=== PATIENT | male | born 1985 | race Caucasian/White ===

== ENCOUNTER 2021-07-12 11:55 | Emergency (ER) | payer MEDICAID, SELFPAY ==
--- NOTE | ~2021-07-12 | US_ITS ---
EXAMINATION: US SCROTUM CLINICAL INFORMATION: Right testicular pain. COMPARISON: None TECHNIQUE: A sonogram of the scrotum was performed assessing pineda-scale appearance and color Doppler flow. Spectral Doppler analysis of the arterial and venous flow were performed in the testes bilaterally. FINDINGS: RIGHT: Right testicle measures 6.4 x 3.6 x 3.8 cm, volume 45.8 mL. No focal testicular parenchymal lesions are visualized. Spectral Doppler analysis of the arterial and venous flow is normal in the right testis. Right epididymal head is normal in size. No right hydrocele or varicocele is seen. Right epididymal Doppler flow is normal. LEFT: Left testicle measures 6.1 x 3.2 x 3.6 cm, volume 36.8 mL. No focal testicular parenchymal lesions are visualized. Spectral Doppler analysis of the arterial and venous flow is normal in the left testis. Left epididymal head is normal in size. No left hydrocele or varicocele is seen. Left epididymal Doppler flow is normal. US/US scrotum IMPRESSION: Bilateral slightly enlarged testicles but no focal or geographic lesion seen. There is normal vascular flow. Normal epididymis and scrotum.
--- NOTE | ~2021-07-12 | CT_ITS ---
EXAMINATION: CT ABDOMEN AND PELVIS WITHOUT CONTRAST CLINICAL INFORMATION: Right flank pain COMPARISON: None TECHNIQUE: Multidetector volumetric imaging was performed from the superior aspect of the liver through the pubic symphysis. Sagittal and coronal reformatted images were obtained on the technologist's workstation. This CT examination was performed using dose optimization techniques as appropriate, variously including the following: *Automated exposure control *Adjustment of mA and/or kV according to patient size (this includes techniques or standardized protocols for targeted exams where dose is matched to indication/reason for exam; i.e. extremities or head) *Use of iterative reconstruction technique DLP: 416 mGy-cm FINDINGS: LUNG BASES: The visualized lung bases are unremarkable. No pleural or pericardial effusion. LIVER, GALLBLADDER, AND BILIARY TREE: The liver is normal in size, shape, and attenuation. No focal hepatic lesion or biliary ductal dilatation is present. The gallbladder is unremarkable with no evidence of radiopaque gallstones, gallbladder wall thickening, or obvious pericholecystic inflammatory changes. PANCREAS: Unremarkable. SPLEEN: Unremarkable. ADRENAL GLANDS: Unremarkable. KIDNEYS AND URETERS: The kidneys are normal in size, shape, and attenuation. No hydronephrosis, hydroureter, or calculi seen. No perinephric stranding. 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 BLADDER: Unremarkable. GASTROINTESTINAL TRACT: No dilated loops of large or small bowel. No free air or free fluid. No evidence of acute diverticulitis. No pericolonic inflammatory change. The appendix appears unremarkable. ABDOMINAL WALL: No significant hernia is appreciated. LYMPH NODES: There are some prominent mesenteric lymph nodes present measuring up to 9 mm in short axis. VASCULAR: Unremarkable. PELVIC VISCERA: Unremarkable. OSSEOUS STRUCTURES: No suspicious destructive bony abnormalities identified. There is a circumscribed low density lesion with what appears be some chondroid matrix and slightly sclerotic outer margins with a benign appearance and may be postsurgical in nature.. CT/CT abdomen pelvis wo con IMPRESSION: No evidence of ileus or obstruction. No evidence of obstructive uropathy. Fleischner guidelines were followed.
--- NOTE | ~2021-07-12 | US_ITS ---
EXAMINATION: US SCROTUM CLINICAL INFORMATION: Right testicular pain. COMPARISON: None TECHNIQUE: A sonogram of the scrotum was performed assessing pineda-scale appearance and color Doppler flow. Spectral Doppler analysis of the arterial and venous flow were performed in the testes bilaterally. FINDINGS: RIGHT: Right testicle measures 6.4 x 3.6 x 3.8 cm, volume 45.8 mL. No focal testicular parenchymal lesions are visualized. Spectral Doppler analysis of the arterial and venous flow is normal in the right testis. Right epididymal head is normal in size. No right hydrocele or varicocele is seen. Right epididymal Doppler flow is normal. LEFT: Left testicle measures 6.1 x 3.2 x 3.6 cm, volume 36.8 mL. No focal testicular parenchymal lesions are visualized. Spectral Doppler analysis of the arterial and venous flow is normal in the left testis. Left epididymal head is normal in size. No left hydrocele or varicocele is seen. Left epididymal Doppler flow is normal. US/US scrotum doppler IMPRESSION: Bilateral slightly enlarged testicles but no focal or geographic lesion seen. There is normal vascular flow. Normal epididymis and scrotum.
[2021-07-12 12:13] VITALS: BP 153/95; PULSE 116; RESP 16; TEMP 37.1; BMI 22.1
[2021-07-12 12:35] LABS: Appearance Urine CLEAR; Color Urine YELLOW; Glucose Urine UA NEG (NEG); Leukocyte Esterase Urine NEG (NEG); Nitrite Urine NEG (NEG); PH 5.5 (5.0-8.0); Specific Gravity - Urine >= 1.030 (1.005-1.025); Urine Blood NEG (NEG); Urine Ketones 5 MG/DL (NEG); Urine Protein NEG (NEG-TRACE)
--- NOTE | 2021-07-12 13:14 | ED_ITS ---
HPI - General Adult General Chief complaint: Urogenital-Male Stated complaint: kidney pain Time Seen by Provider: 07/12/21 12:42 Source: patient Mode of arrival: ambulatory Limitations: no limitations History of Present Illness HPI narrative: 36-year-old male presents to ED for right testicular pain, right flank pain, urinary dribbling stream and increased urinary frequency. Patient denies any nausea, vomiting, fever, chills, penile discharge, or penile lesions. Patient states no past medical history. Patient denies any history of STDs and denies any recent unprotected sexual activity. Related Data Allergies Allergy/AdvReac Type Severity Reaction Status Date / Time Penicillins Allergy Difficulty Verified 07/12/21 12:13 Breathing Review of Systems Review of Systems: Increased urinary frequency. Right flank pain. Yes all other systems are reviewed and are negative [facility] Social History Social History Advance Directives: No Advance Directives Information Provided: No Physical Exam ED Vital Signs: Vital Signs - 24 hr 07/12/21 12:13 07/12/21 14:00 07/12/21 16:00 Temperature 98.7 F Pulse Rate 116 H 76 60 Respiratory Rate 16 16 16 Blood Pressure 153/95 H 133/83 133/81 Pulse Oximetry 96 98 BMI result Body Mass Index 22.1 Const General: cooperative, healthy appearing, comfortable, no acute distress, well developed, alert, awake and Physically active Orientation/consciousness: patient oriented x3 HENMT Head: Yes normal to inspection, Yes No palpable skull fracture present, Yes normocephalic, Yes atraumatic and No abrasion Eyes General: appearance normal, both eyes and all related structures Neck Neck: Yes normal visual inspection, Yes full ROM, Yes no lymphadenopathy, Yes no meningeal signs, Yes trachea midline, Yes supple, No anterior neck swelling and No tender Chest Chest palpation & inspection: normal inspection of the chest and normal palpati on of entire chest wall Resp Effort & Inspection: normal respiratory effort and able to speak in complete sentences Auscultation: clear to auscultation bilaterally Cardio Jugular venous distension: no JVD Heart sounds: S1 normal heart sound present and S2 normal heart sound present GI Inspection: Yes normal to inspection and No abdominal wall ecchymosis Palpation (GI): Soft to palpation, not firm, nontender and no guarding Other: Negative for any penile discharge, penile lesions, or penile swelling. Mild tenderness of right testicle but negative for any erythema. The testicle normal. Scrotum not swollen. Skin General skin exam: no rashes or lesions noted and elasticity normal Neuro General: patient oriented x3, gait normal, no meningeal signs and CN's II-XI intact bilaterally Cranial nerves: Yes CN's II-XII intact bilaterally Extrem General: Yes normal to inspection and Yes full ROM Psych Appearance: grossly normal, well kempt and not disheveled Course Course Course Narrative: Blue basic labs. We will send for scrotal ultrasound who was seen for dry CT to check for kidney stones although would negative for blood. Labs ordered Reevaluation(s) Reevaluation #1: Testicular ultrasound came back negative for torsion or epididymitis but did say testicles were little bit larger than usual. Dr. Montiel spoke with me in regards to ultrasound results of large testicles and states patient be have some lympho ma that needs to be evaluated. Patient's abdominal CT scan shows mesenteric lymphadenopathy. Prevoid bladder scan was 650 and post void bladder scan was 300. Patient refused straight cath or indwelling aguirre. Patient informed of conversation that was done with radiologist Dr. Montiel and CT scan reading lymphadenopathy was informed he should follow-up with her primary care to be evaluated for lymphoma and follow-up with Urology for difficulty urinating Time: 17:51 Medical Decision Making [facility] Narrative Medical decision making narrative: Mesenteric lymphadenopathy. Difficulty urination Lab Data Result diagrams: 07/12/21 13:30 07/12/21 13:30 Labs: Lab Results 07/12/21 07/12/21 07/12/21 Range/Units 12:26 13:30 13:30 WBC 7.8 (4.8-10.8) X10*3/uL RBC 4.95 (4.60-5.80) X10*6/uL Hgb 15.4 (14.0-18.0) g/dl Hct 43.4 (42.0-52.0) % MCV 87.7 (80.0-98.0) fL MCH 31.1 (27.0-33.0) pg MCHC 35.5 (31.0-36.0) g/dl RDW 11.8 (11.0-16.0) % Plt Count 211 (160-400) X10*3/uL MPV 9.5 (9.4-12.4) fL Immature Gran % (Auto) 0.3 (0.0-0.4) % Neut % (Auto) 70.5 (45-73) % Lymph % (Auto) 21.0 (20-40) % [place] % (Auto) 6.8 (2-11) % Eos % (Auto) 1.0 (0-4) % Baso % (Auto) 0.4 (0-2) % Lymph # (Auto) 1.6 (1.2-4.9) X10*3/uL [place] # (Auto) 0.5 (0.1-1.2) X10*3/uL Eos # (Auto) 0.1 (0.0-0.4) X10*3/uL Baso # (Auto) 0.0 (0.0-0.2) X10*3/uL Abs Immat Gran (auto) 0.02 (0.00-0.03) X10*3/uL Absolute Neuts (auto) 5.5 (2.0-8.3) x10*3/uL Absolute Nucleated RBC 0.000 (0.0-0.012) X10*3/uL Nucleated RBC % (auto) 0.0 (0.0-0.2) /100WBC Sodium 140 (135-145) mmol/L Potassium 4.4 (3.3-5.1) mmol/L Chloride 106 (96-108) mmol/L Carbon Dioxide 25 (22-29) mmol/L Anion Gap 13 (12-20) BUN 11 (9-16) mg/dL Creatinine 0.93 (0.5-1.4) mg/dL Estim Creat Clear Calc 107.7 Estimated GFR > 60 Random Glucose 105 (60-115) mg/dL Calcium 10.2 (8.4-10.2) mg/dL Total Bilirubin 1.4 H (0.0-1.0) mg/dL AST 19 (5-37) U/L ALT 35 (0-40) U/L Alkaline Phosphatase 48 (39-117) U/L Total Protein 7.4 (6.5-8.0) g/dL Albumin 4.7 (3.5-5.0) g/dL Urine Color YELLOW Urine Appearance CLEAR Urine pH 5.5 (5.0-8.0) Ur Specific [place] >= 1.030 H (1.005-1.025) Urine Protein NEG (NEG-TRACE) MG/DL Urine Glucose (UA) NEG (NEG) MG/DL Urine Ketones 5 (NEG) MG/DL Urine Blood NEG (NEG) Urine Nitrite NEG (NEG) Ur Leukocyte Esterase NEG (NEG) Chlam trachomat DNA PCR (Not Detect.) N.gonorrhoeae DNA (PCR) (Not Detect.) 07/12/21 Range/Units 13:31 WBC (4.8-10.8) X10*3/uL RBC (4.60-5.80) X10*6/uL Hgb (14.0-18.0) g/dl Hct (42.0-52.0) % MCV (80.0-98.0) fL MCH (27.0-33.0) pg MCHC (31.0-36.0) g/dl RDW (11.0-16.0) % Plt Count (160-400) X10*3/uL MPV (9.4-12.4) fL Immature Gran % (Auto) (0.0-0.4) % Neut % (Auto) (45-73) % Lymph % (Auto) (20-40) % [place] % (Auto) (2-11) % Eos % (Auto) (0-4) % Baso % (Auto) (0-2) % Lymph # (Auto) (1.2-4.9) X10*3/uL [place] # (Auto) (0.1-1.2) X10*3/uL Eos # (Auto) (0.0-0.4) X10*3/uL Baso # (Auto) (0.0-0.2) X10*3/uL Abs Immat Gran (auto) (0.00-0.03) X10*3/uL Absolute Neuts (auto) (2.0-8.3) x10*3/uL Absolute Nucleated RBC (0.0-0.012) X10*3/uL Nucleated RBC % (auto) (0.0-0.2) /100WBC Sodium (135-145) mmol/L Potassium (3.3-5.1) mmol/L Chloride (96-108) mmol/L Carbon Dioxide (22-29) mmol/L Anion Gap (12-20) BUN (9-16) mg/dL Creatinine (0.5-1.4) mg/dL Estim Creat Clear Calc Estimated GFR Random Glucose (60-115) mg/dL Calcium (8.4-10.2) mg/dL Total Bilirubin (0.0-1.0) mg/dL AST (5-37) U/L ALT (0-40) U/L Alkaline Phosphatase (39-117) U/L Total Protein (6.5-8.0) g/dL Albumin (3.5-5.0) g/dL Urine Color Urine Appearance Urine pH (5.0-8.0) Ur Specific [place] (1.005-1.025) Urine Protein (NEG-TRACE) MG/DL Urine Glucose (UA) (NEG) MG/DL Urine Ketones (NEG) MG/DL Urine Blood (NEG) Urine Nitrite (NEG) Ur Leukocyte Esterase (NEG) Chlam trachomat DNA PCR NOT DETECTED (Not Detect.) N.gonorrhoeae DNA (PCR) NOT DETECTED (Not Detect.) Discharge Plan Discharge Clinical Impression: Difficulty in urination, Lymphadenopathy, mesenteric Patient Disposition: Home, Self-Care Instructions: Lymphadenopathy (ED), Urinary Urgency and Frequency (DC) Additional Instructions: You were given copy of your images and labs. Please follow-up with urologist for increased urinary frequency with dribbling stream. You will also need to follow up primary care provider for workup of possible lymphoma. Return to the ED for inability to urinate, severe testicular pain, abdominal pain, nausea, vomiting, fever, chills, flank pain, or any other concerning symptoms. Referrals: Bennie Camilo MD [Physician] - 2 days (Increased urinary urgency and frequency with dribbling stream. ) Print Language: Sami
[2021-07-12 13:41] LABS: MANUAL DIFF FLAG NO
[2021-07-12 13:42] LABS: Basophils Percent Auto 0.4 % (0-2); Eosinophils Absolute Auto 0.1 X10*3/uL (0.0-0.4); Hematocrit 43.4 % (42.0-52.0); Hemoglobin 15.4 g/dl (14.0-18.0); Imm Gran Abs Auto 0.02 X10*3/uL (0.00-0.03); Imm Gran Pct Auto 0.3 % (0.0-0.4); Lymphocytes Absolute Auto 1.6 X10*3/uL (1.2-4.9); Mean Corpuscular HGB Conc 35.5 g/dl (31.0-36.0); Mean Corpuscular Hemoglobin 31.1 pg (27.0-33.0); Mean Corpuscular Volume 87.7 fL (80.0-98.0); Mean Platelet Volume 9.5 fL (9.4-12.4); Monocytes Absolute Auto 0.5 X10*3/uL (0.1-1.2); Monocytes Percent Auto 6.8 % (2-11); Neutrophils Absolute Auto 5.5 x10*3/uL (2.0-8.3); Neutrophils Percent Auto 70.5 % (45-73); Platelet Count 211 X10*3/uL (160-400); Red Blood Count 4.95 X10*6/uL (4.60-5.80); Red Cell Distribution Width 11.8 % (11.0-16.0); White Blood Count 7.8 X10*3/uL (4.8-10.8)
[2021-07-12 13:58] LABS: Alanine Aminotransferase 35 U/L (0-40); Albumin Level 4.7 g/dL (3.5-5.0); Alkaline Phosphatase 48 U/L (39-117); Anion Gap 13 (12-20); Aspartate Amino Transferase 19 U/L (5-37); Bilirubin Total 1.4 mg/dL (0.0-1.0); Blood Urea Nitrogen 11 mg/dL (9-16); Calcium 10.2 mg/dL (8.4-10.2); Carbon Dioxide 25 mmol/L (22-29); Chloride 106 mmol/L (96-108); Creatinine Clr Calc Pharmacy 107.7; Estimated Glomerular Filt Rate > 60; Glucose Random 105 mg/dL (60-115); Potassium 4.4 mmol/L (3.3-5.1); Sodium 140 mmol/L (135-145); Total Protein 7.4 g/dL (6.5-8.0)
[2021-07-12 14:00] VITALS: BP 133/83; PULSE 76; RESP 16; O2SAT 96
[2021-07-12 16:00] VITALS: BP 133/81; PULSE 60; RESP 16; O2SAT 98
[2021-07-12 16:37] LABS: CT PCR NOT DETECTED (Not Detect.); NG PCR NOT DETECTED (Not Detect.)
== END 2021-07-12 18:20 | disposition home or self-care (01) ==
PROVIDERS: Physician Assistant; Emergency Provider Emergency Medicine
DX: R33.9 Retention of urine, unspecified (principal); R59.1 Generalized enlarged lymph nodes; R35.0 Frequency of micturition; N23 Unspecified renal colic; Z79.899 Other long term (current) drug therapy
CPT/HCPCS: 36415; 51798; 74176; 76870; 80053; 81003; 85025; 87491; 87591; 93975; 96374; 99284

== ENCOUNTER 2021-08-11 09:54 | Emergency (ER) | payer MEDICAID, SELFPAY ==
--- NOTE | ~2021-08-11 | CT_ITS ---
EXAMINATION: CT HEAD WITHOUT CONTRAST CLINICAL INFORMATION: Headache. Facial numbness. COMPARISON: None available. TECHNIQUE: Contiguous axial imaging was performed from the skull base to vertex without intravenous administration of contrast. This CT examination was performed using dose optimization techniques as appropriate, variously including the following: *Automated exposure control. *Adjustment of mA and/or kV according to patient size (this includes techniques or standardized protocols for targeted exams where dose is matched to indication/reason for exam; i.e. extremities or head). *Use of iterative reconstruction technique. DLP: 646 mGy-cm FINDINGS: There is no evidence of acute intracranial hemorrhage or edematous territorial infarction. There is no abnormal attenuation within the brain parenchyma. Miller-white matter differentiation is preserved. The ventricles are normal in size and configuration. No evidence for obstructive hydrocephalus. No abnormal mass effect or midline shift. No extra-axial fluid collections. No acute soft tissue or osseous abnormalities. Mild mucosal thickening of the paranasal sinuses. Most notably, there is moderate mucosal thickening of the left frontal sinus. Small left-sided mastoid effusion. Otherwise, the remaining mastoid air cells and middle ear cavities are clear. CT/CT head/brain wo con IMPRESSION: 1. No evidence of acute intracranial hemorrhage or edematous territorial infarction. 2. Sinonasal mucosal disease most notably affecting the left frontal sinus.
--- NOTE | ~2021-08-11 | XR_ITS ---
EXAMINATION: XR CHEST CLINICAL INFORMATION: Chest pain COMPARISON: None TECHNIQUE: 2 views of the chest were obtained. FINDINGS: There is no evidence of acute parenchymal disease, pneumothorax, or pleural effusion. Heart normal size. No evidence of pulmonary edema. Bony structures appear unremarkable. Overlying the lower right hemithorax there is an approximately 8 mm density which may represent nipple shadow or vessel en face. Repeat PA view with nipple markers in place would be of help in further evaluation. XR/XR chest 2V IMPRESSION: No acute disease. 8 mm density overlying the right hemithorax as described.
[2021-08-11 10:08] VITALS: BP 139/84; PULSE 82; RESP 16; TEMP 36.6; O2SAT 98; BMI 23.6
[2021-08-11 11:16] LABS: MANUAL DIFF FLAG NO
[2021-08-11 11:26] LABS: Basophils Percent Auto 0.4 % (0-2); Eosinophils Absolute Auto 0.2 X10*3/uL (0.0-0.4); Eosinophils Percent Auto 2.8 % (0-4); Hematocrit 42.6 % (42.0-52.0); Hemoglobin 15.4 g/dl (14.0-18.0); Imm Gran Abs Auto 0.03 X10*3/uL (0.00-0.03); Imm Gran Pct Auto 0.4 % (0.0-0.4); Lymphocytes Absolute Auto 2.1 X10*3/uL (1.2-4.9); Lymphocytes Percent Auto 26.1 % (20-40); Mean Corpuscular HGB Conc 36.2 g/dl (31.0-36.0); Mean Corpuscular Hemoglobin 31.6 pg (27.0-33.0); Mean Corpuscular Volume 87.3 fL (80.0-98.0); Mean Platelet Volume 9.7 fL (9.4-12.4); Monocytes Absolute Auto 0.6 X10*3/uL (0.1-1.2); Monocytes Percent Auto 7.2 % (2-11); Neutrophils Percent Auto 63.1 % (45-73); Platelet Count 222 X10*3/uL (160-400); Red Blood Count 4.88 X10*6/uL (4.60-5.80); Red Cell Distribution Width 11.7 % (11.0-16.0); White Blood Count 7.9 X10*3/uL (4.8-10.8)
[2021-08-11 11:31] LABS: Anion Gap 12 (12-20); Blood Urea Nitrogen 12 mg/dL (9-16); Calcium 9.5 mg/dL (8.4-10.2); Carbon Dioxide 23 mmol/L (22-29); Chloride 107 mmol/L (96-108); Creatinine Clr Calc Pharmacy 122.4; Estimated Glomerular Filt Rate > 60; Glucose Random 94 mg/dL (60-115); Potassium 3.9 mmol/L (3.3-5.1); Sodium 138 mmol/L (135-145)
--- NOTE | 2021-08-11 12:05 | ECG_ITS ---
Test Reason : general medical Blood Pressure : / mmHG Vent. Rate : 056 BPM Atrial Rate : 056 BPM P-R Int : 150 ms QRS Dur : 096 ms QT Int : 414 ms P-R-T Axes : 011 052 019 degrees QTc Int : 399 ms Sinus bradycardia with sinus arrhythmia ST elevation, consider early repolarization Borderline ECG No previous ECGs available Referred By: Tracy Jones Electronically Signed By:Eduar High
--- NOTE | 2021-08-11 12:07 | ED.GENADULT ---
HPI - General Adult General Chief complaint: General Medical Stated complaint: headache Time Seen by Provider: 08/11/21 10:44 Source: patient Mode of arrival: ambulatory Limitations: no limitations History of Present Illness HPI narrative: 36-year-old male healthy here with multiple complaints. Patient reports of right-sided headache constant for the last 3 weeks this is associated with photophobia. No phonophobia or nausea vomiting or dizziness. Patient tells me 4 days ago the headache became more severe and he had some periodically tingling of the right side of the face. The headache has improved in severity and the tingling is now described as a burning sensation on the right side of the face. This is not triggered by eating, drinking, touch. There is no reports of paresthesias of the extremity or weakness of the extremity or speech changes or dizziness. Patient also complaining of right-sided chest wall pain for the last few weeks. seen at his primary care for this and had some labs which she tell me which were normal. Told his pain was nerve pain d/t area of self injury in the past. no associated cough, fever, shortness of breath, abdominal pain or vomiting. Related Data Allergies Allergy/AdvReac Type Severity Reaction Status Date / Time Penicillins Allergy Difficulty Verified 07/12/21 12:13 Breathing Review of Systems Review of Systems: Yes all other systems are reviewed and are negative Constitutional: Constitutional: Reports no additional constitutional complaints, Denies body ache(s), Denies chills, Denies fever(s), Reports headache(s) and Denies weakness Eyes: Eyes: Reports no additional eye complaints and Denies change in vision ENT: Reports system reviewed and no additional complaints, except as documented, Denies dizziness, Reports headache(s), Denies nasal congestion, Denies nasal discharge and Denies neck pain Cardiovascular: Cardiovascular: Reports no additional cardiovascular complaints, Reports chest pain, Denies leg edema and Denies dyspnea Respiratory: Respiratory: Reports no additional respiratory complaints, Denies cough and Denies dyspnea Gastrointestinal: Gastrointestinal: Reports no additional gastrointestinal complaints, Denies abdominal pain, Denies diarrhea, Denies nausea and Denies vomiting Genitourinary: Genitourinary: Denies urinary incontinence Musculoskeletal: Musculoskeletal: Reports no additional musculoskeletal complaints, Denies back pain, Denies arthralgias, Denies joint swelling, Denies neck pain, Reports numbness and Reports tingling Integumentary/Breasts: Skin/Breast: Reports system reviewed and no additional complaints, except as docu and Denies rash Neurologic: Reports system reviewed and no additional complaints, except as documented, Denies dizziness, Reports headache(s), Reports numbness, Reports tingling and Denies weakness PMFSH Past Medical History Attestation statement: The following information was validated with the patient. Source: old records reviewed and nursing notes reviewed Medical History No known health problems Social History Social History Advance Directives: Yes Advance Directives Information Provided: Yes Advance Directives on File: No Physical Exam ED Vital Signs: Vital Signs - 24 hr 08/11/21 10:08 Temperature 98 F Pulse Rate 82 Respiratory Rate 16 Blood Pressure 139/84 Pulse Oximetry 98 BMI result Body Mass Index 23.6 Const General: cooperative, healthy appearing, comfortable and no acute distress Orientation/consciousness: patient oriented x3 Limitations: no limitations HENMT Head: Yes normal to inspection, No scalp tenderness and No Temporal artery tenderness present Ears: hearing grossly normal bilaterally and TM's normal bilaterally General nose exam: Normal external nose present Face and sinus: Yes normal facial exam Mouth: Normal oral and palatal mucosa present Throat: Yes posterior oropharynx normal, Yes tonsils normal and Yes uvula midline Eyes General: appearance normal, both eyes and all related structures Visual Mercedes: normal visual mercedes by confrontation Alignment and Position: alignment normal Pupils: Equal, round and reactive pupils present EOM: EOMs intact bilaterally Neck Neck: Yes normal visual inspection, Yes full ROM, Yes no lymphadenopathy and Yes no meningeal signs Chest Other: Unable to reproduce any tenderness Chest palpation & inspection: normal inspection of the chest Chest/axillae images: 1. multiple area of scarring Resp Effort & Inspection: normal respiratory effort Auscultation: clear to auscultation bilaterally Cardio Rate: regular rate Rhythm: regular rhythm Peripheral pulses: Peripheral pulses 2+ throughout GI Inspection: Yes normal to inspection Palpation (GI): Soft to palpation and nontender General: Yes no CVA tenderness Back/Spine/Pelvis Back: no CVA tenderness Thoracic/Lumbar Spine: thoracic and lumbar spine normal to inspection Skin General skin exam: no rashes or lesions noted Neuro General: patient oriented x3, moves all extremities and no meningeal signs Cranial nerves: Yes CN's II-XII intact bilaterally, Yes Equal, round and reactive pupils present, Yes Bilaterally intact EOM present, Yes Nystagmus not present, Yes Normal facial strength present and Yes Midline tongue present Cognition (Neuro): normal cognition Gait exam (Neuro): Normal gait present Motor exam (neuro): 5/5 motor strength present throughout Sensory Exam: Normal double simultaneous stimulation for sensation Coordination: [id number] test normal, [id number] test normal and tandem gait normal Extrem General: Yes normal to inspection, Yes no pedal edema and Yes no calf tenderness NIH Stroke Scale Internal: Initial- Upon Arrival Level of Consciousness: Alert Level of Consciousness Questions: Answers both questions correctly Level of Consciousness Commands: Performs both tasks correctly Best Gaze: Normal Visual: No visual loss Facial Palsy: Normal Motor Arm (Right): No drift Motor Arm (Left): No drift Motor Leg (Right): No drift Motor Leg (Left): No drift Limb Ataxia: Absent Sensory: Normal Best Language: No aphasia Dysarthia: Normal Extinction and Inattention: No abnormality Score: 0 Course Course Course Narrative: 36-year-old male here with multiple complaints. Patient reports headache for the last few weeks with some sensation changes over the right side of face for the last 4 days. NIH score 0. Normal neuro exam. No obvious and of temporal artery tenderness or trigeminal neuralgia pain. ?migraine. due to persistence in pain and length of symptoms will check CT head to rule out any space-occupying lesion. will give normal saline bolus, IV Toradol, Benadryl and Reglan. also complaining of some right-sided chest wall pain for the last few weeks. Unable to elicit any pain on exam. Will check chest x-ray, EKG, lab Reevaluation(s) Reevaluation #1: Labs are unremarkable. Chest x-ray, EKG showed no acute finding. CT head is unremarkable. the patient reports his symptoms of headache or improving but continue. I did offer additional medications but the patient declined this. Therefore we discussed increasing fluids at home, supportive care measures and follow up .with his primary care. reviewed worrisome signs and symptoms of when to return to the emergency department. Comfortable discharge home. Time: 14:30 Medical Decision Making MDM Narrative Medical decision making narrative: Less likely ACS with negative troponin, normal EKG and symptoms greater for several weeks perc score 0. Less likely PE less likely CVA with no focal neurological deficits and a negative head CT was symptoms greater than several weeks Medical Records Medical records reviewed: Yes I reviewed the patient's medical records. Lab Data Lab results reviewed: Yes I reviewed the patient's lab results. Result diagrams: 08/11/21 11:04 08/11/21 10:47 Labs: Lab Results 08/11/21 08/11/21 08/11/21 Range/Units 10:47 11:04 11:04 WBC 7.9 (4.8-10.8) X10*3/uL RBC 4.88 (4.60-5.80) X10*6/uL Hgb 15.4 (14.0-18.0) g/dl Hct 42.6 (42.0-52.0) % MCV 87.3 (80.0-98.0) fL MCH 31.6 (27.0-33.0) pg MCHC 36.2 H (31.0-36.0) g/dl RDW 11.7 (11.0-16.0) % Plt Count 222 (160-400) X10*3/uL MPV 9.7 (9.4-12.4) fL Immature Gran % (Auto) 0.4 (0.0-0.4) % Neut % (Auto) 63.1 (45-73) % Lymph % (Auto) 26.1 (20-40) % [place] % (Auto) 7.2 (2-11) % Eos % (Auto) 2.8 (0-4) % Baso % (Auto) 0.4 (0-2) % Lymph # (Auto) 2.1 (1.2-4.9) X10*3/uL [place] # (Auto) 0.6 (0.1-1.2) X10*3/uL Eos # (Auto) 0.2 (0.0-0.4) X10*3/uL Baso # (Auto) 0.0 (0.0-0.2) X10*3/uL Abs Immat Gran (auto) 0.03 (0.00-0.03) X10*3/uL Absolute Neuts (auto) 5.0 (2.0-8.3) x10*3/uL Absolute Nucleated RBC 0.000 (0.0-0.012) X10*3/uL Nucleated RBC % (auto) 0.0 (0.0-0.2) /100WBC Sodium 138 (135-145) mmol/L Potassium 3.9 (3.3-5.1) mmol/L Chloride 107 (96-108) mmol/L Carbon Dioxide 23 (22-29) mmol/L Anion Gap 12 (12-20) BUN 12 (9-16) mg/dL Creatinine 0.85 (0.5-1.4) mg/dL Estim Creat Clear Calc 122.4 Estimated GFR > 60 Random Glucose 94 (60-115) mg/dL Calcium 9.5 D (8.4-10.2) mg/dL Magnesium 2.0 (1.6-2.6) mg/dL Total Bilirubin 1.3 H (0.0-1.0) mg/dL Direct Bilirubin 0.4 (0.0-0.5) mg/dL AST 23 (5-37) U/L ALT 36 (0-40) U/L Alkaline Phosphatase 59 D (39-117) U/L Total Creatine Kinase 123 (38-174) U/L Troponin I High Sens 5.1 (<3.5-35.0) ng/L Total Protein 7.1 (6.5-8.0) g/dL Albumin 4.6 (3.5-5.0) g/dL Imaging Data CT scan - head: Attestation: I personally reviewed and interpreted this imaging study as follows: Radiologist's impression: [place] [id number] CT Scan Report Signed Patient: Trae Shaver MR#: [id number] : 1985 Acct:[id number] Age/Sex: 36 / M ADM Date: 08/11/21 Loc: HO.ED Attending Dr: Ordering Physician: Jocelyn Cedeno DO Date of Service: 08/11/21 Procedure(s): CT head/brain wo con Accession Number(s): [id number] cc: Jocelyn Cedeno DO~ EXAMINATION: CT HEAD WITHOUT CONTRAST CLINICAL INFORMATION: Headache. Facial numbness.? COMPARISON: None available. TECHNIQUE: Contiguous axial imaging was performed from the skull base to vertex without intravenous administration of contrast. This CT examination was performed using dose optimization techniques as appropriate, variously including the following: *Automated exposure control. *Adjustment of mA and/or kV according to patient size (this includes techniques or standardized protocols for targeted exams where dose is matched to indication/reason for exam; i.e. extremities or head). *Use of iterative reconstruction technique. DLP: 646 mGy-cm FINDINGS: There is no evidence of acute intracranial hemorrhage or edematous territorial infarction. There is no abnormal attenuation within the brain parenchyma. Miller-white matter differentiation is preserved. The ventricles are normal in size and configuration. No evidence for obstructive hydrocephalus. No abnormal mass effect or midline shift. No extra-axial fluid collections. No acute soft tissue or osseous abnormalities. Mild mucosal thickening of the paranasal sinuses. Most notably, there is moderate mucosal thickening of the left frontal sinus. Small left-sided mastoid effusion. Otherwise, the remaining mastoid air cells and middle ear cavities are clear. ? CT/CT head/brain wo con IMPRESSION: 1. No evidence of acute intracranial hemorrhage or edematous territorial infarction. 2. Sinonasal mucosal disease most notably affecting the left frontal sinu Chest x-ray: Attestation: I personally reviewed and interpreted this imaging study as follows: Radiologist's impression: [address] [address] XRay Report Signed Patient: Trae Shaver MR#: [id number] : 1985 Acct:[id number] Age/Sex: 36 / M ADM Date: 08/11/21 Loc: HO.ED Attending Dr: Ordering Physician: Tracy Jones NP Date of Service: 08/11/21 Procedure(s): XR chest 2V Accession Number(s): [id number] cc: Tracy Jones NP~ EXAMINATION: XR CHEST CLINICAL INFORMATION: Chest pain COMPARISON: None TECHNIQUE: 2 views of the chest were obtained. FINDINGS: There is no evidence of acute parenchymal disease, pneumothorax, or pleural effusion. Heart normal size. No evidence of pulmonary edema. Bony structures appear unremarkable. Overlying the lower right hemithorax there is an approximately 8 mm density which may represent nipple shadow or vessel en face. Repeat PA view with nipple markers in place would be of help in further evaluation. XR/XR chest 2V IMPRESSION: No acute disease. ? 8 mm density overlying the right hemithorax as described. ECG Data Attestation: I personally reviewed and interpreted this ECG as follows: Interpretation: Sb with rate 56, early repolarization on EKG, normal pr, normal qrs Discharge Plan Discharge Clinical Impression: Migraine, Chest wall pain Patient Disposition: Home, Self-Care Additional Instructions: your lab work, EKG, chest x-ray and CT scan looked normal we did do Lyme testing and these results take several days. We will call you if they are positive you were offered additional oral medications will your her in the emergency department you declined this. Please follow-up with your primary care doctor. Referrals: Physician,Jose Manuel J [Primary Care Provider] -
[2021-08-11] MEDS: diphenhydrAMINE HCL 50 MG/ML VIAL 25 MG IVPUSH (12:27)
[2021-08-11] MEDS: Metoclopramide HCl 10 MG/2 ML VIAL IVPUSH (12:27)
[2021-08-11] MEDS: 0.9 % Sodium Chloride 1,000 ML 999 ML IV (12:27)
[2021-08-11] MEDS: Ketorolac Tromethamine 30 MG/ML VIAL IVPUSH (12:28)
[2021-08-11 12:38] LABS: Alanine Aminotransferase 36 U/L (0-40); Albumin Level 4.6 g/dL (3.5-5.0); Alkaline Phosphatase 59 U/L (39-117); Aspartate Amino Transferase 23 U/L (5-37); Bilirubin Direct 0.4 mg/dL (0.0-0.5); Bilirubin Total 1.3 mg/dL (0.0-1.0); Total Protein 7.1 g/dL (6.5-8.0)
[2021-08-11 12:49] LABS: Troponin-I High Sensitivity 5.1 ng/L (<3.5-35.0)
[2021-08-11 14:48] VITALS: BP 134/71; PULSE 76; RESP 18; O2SAT 97
--- NOTE | 2021-08-11 14:51 | PC.NURSE ---
states pain still present in r side of head, 09/05, nad, skin wpd, all labs and results reviewed, will f/u w pcp
[2021-08-14 20:36] LABS: Lyme Abs Screen <0.90 index
== END 2021-08-11 14:51 | disposition home or self-care (01) ==
PROVIDERS: Nurse Practitioner Family; Emergency Provider Emergency Medicine
DX: R51.9 Headache, unspecified (principal); R07.89 Other chest pain; Z79.899 Other long term (current) drug therapy
CPT/HCPCS: 36415; 70450; 71046; 80048; 80076; 82550; 83735; 84484; 85025; 86617; 86618; 93005; 96361; 96374; 96375; 99284; J1200; J1885; J2765

== ENCOUNTER → 2021-09-15 08:40 | Outpatient (BNVA) | payer MEDICAID, SELFPAY | PROVIDERS: Visit Provider Urology | DX: N41.9 Inflammatory disease of prostate, unspecified (principal) | CPT/HCPCS: 51798; 99202 ==

== ENCOUNTER → 2021-10-20 10:54 | Outpatient (BNVA) | payer MEDICAID, SELFPAY | PROVIDERS: PCP Internal Medicine; Visit Provider Urology | DX: N41.9 Inflammatory disease of prostate, unspecified (principal); N45.1 Epididymitis; N39.0 Urinary tract infection, site not specified | CPT/HCPCS: 99212 ==

== ENCOUNTER 2023-02-01 11:18 | Outpatient (AMB) | payer OTHER, SELFPAY ==
--- NOTE | 2023-02-01 11:22 | MHC.OFFVIS ---
Intake Intake Visit Reasons: 1Y Follow Up(Prostatitis) Intake Note: Patient is Present for Follow Up Prostatitis Urology Medication: Tamsulosin Antibiotic Allergies:Penicillins Blood Thinners: None Pharmacy: [facility] Allergies Penicillins Allergy (Verified 02/01/23 11:22) Difficulty Breathing HPI HPI Comments History of Present Illness Details Trae is a pleasant male. He is a patient of . He is seen for the following urologic conditions - prostatitis Symptoms tolerable Did well with pelvic floor physical therapy Is continuing to do exercises Thinks he can manage on his own Prostatitis Started May 2021 Pain towards distal head of penis Had trial of combination therapy with Levaquin and 20% improvement 11/17 Microgen negative [facility] Medical History No known health problems Review of Systems Const Denies chills and Denies fever(s) Card Reports no additional complaints and Denies syncope Resp Denies cough GI Denies abdominal pain and Denies heartburn Reports as per HPI and Denies change in libido Neuro Denies syncope Psych Denies change in libido Endo Denies change in libido Physical Exam Const General: cooperative, healthy appearing, comfortable and no acute distress Orientation/consciousness: patient oriented x3 HEENT Face and sinus: Yes normal facial exam Mouth: moist mucous membranes Neck Neck: Yes normal visual inspection, Yes full ROM and Yes trachea midline Chest Chest palpation & inspection: normal inspection of the chest Resp Effort & Inspection: normal respiratory effort, able to speak in complete sentences and no respiratory distress GI Inspection: Yes normal to inspection Back/Spine/Pelvis Cervical Spine: normal cervical lordosis Thoracic/Lumbar Spine: thoracic and lumbar spine normal to inspection Skin General skin exam: no rashes or lesions noted Neuro General: patient oriented x3, gait normal, tone normal and moves all extremities Extrem General: Yes normal to inspection and Yes capillary refill normal Assessment & Plan Assessment & Plan (1) Pelvic floor tension: Code(s): M62.89 - Other specified disorders of muscle (2) Prostatitis: Comment: PRN followup Code(s): N41.9 - Inflammatory disease of prostate, unspecified Qualifiers: Prostatitis type: chronic Qualified Code(s): N41.1 - Chronic prostatitis Plan: Imaging studies, laboratory and physical exam results were discussed and reviewed in detail. No major barriers to patient understanding were identified. An opportunity to ask questions regarding the treatment plan was provided. All questions were answered. The patient expressed understanding and agreement with the above treatment plan. The patient is aware they should contact our office by phone for worsening of their current condition or the appearance of new urologic symptoms. Compliance is encouraged with any medications and followup testing that is ordered. It is a privilege to participate in the urologic care of your patient. If you have any questions or concerns regarding treatment for the above conditions, or other urologic issues, please do not hesitate to contact me. The office telephone contact is [phone]. This note is constructed using voice recognition software. While every effort has been made to ensure accuracy drafting instructor errors may have been included. Yours sincerely, Dr Bennie Camilo MD, [facility] - Urology Providers of Expert, Compassionate Care for the Genitourinary System Coding Level of Care Code Est Pt Level 4 (95227) Diagnoses Pelvic floor tension M62.89 Chronic prostatitis N41.1 Prostatitis type: chronic
== END 2023-02-01 11:48 | disposition home or self-care (01) ==
PROVIDERS: PCP Internal Medicine; Visit Provider Urology
DX: M62.89 Other specified disorders of muscle (principal); N41.1 Chronic prostatitis
CPT/HCPCS: 99213

== ENCOUNTER → 2023-02-01 11:18 | Outpatient (BNVA) | payer OTHER, SELFPAY | PROVIDERS: Visit Provider Urology | DX: N41.1 Chronic prostatitis (principal); M62.89 Other specified disorders of muscle | CPT/HCPCS: 99212 ==

== ENCOUNTER 2023-10-17 09:04 | Outpatient (AMB) | payer OTHER, SELFPAY ==
--- NOTE | 2023-10-17 09:13 | MHC.OFFVIS ---
Intake Visit Reasons: prostatitis follow up Intake Note: Patient is Present for Follow Up Prostatitis Urology Medication: Patient is not taking any medications that was last prescribed Antibiotic Allergies:Penicillins Blood Thinners: None Allergies Penicillins Allergy (Verified 10/17/23 09:13) Difficulty Breathing HPI Comments Details: Trae is a pleasant male. He is a patient of . 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 Has had some relapse of symptoms Secondary to overall stress Recommended headache in my pelvis book with Tarah Angel for pelvic floor administered massage Valium to use a suppository provided Prostatitis Started May 2021 Pain towards distal head of penis Had trial of combination therapy with Levaquin and 20% improvement 11/17 Microgen negative [facility] Medical History No known health problems Review of Systems Const Denies chills and Denies fever(s) Card Reports no additional complaints and Denies syncope Resp Denies cough GI Denies abdominal pain and Denies heartburn Reports as per HPI and Denies change in libido Neuro Denies syncope Psych Denies change in libido Endo Denies change in libido Physical Exam Const General: cooperative, healthy appearing, comfortable and no acute distress Orientation/consciousness: patient oriented x3 HEENT Face and sinus: Yes normal facial exam Mouth: moist mucous membranes Neck Neck: Yes normal visual inspection, Yes full ROM and Yes trachea midline Chest Chest palpation & inspection: normal inspection of the chest Resp Effort & Inspection: normal respiratory effort, able to speak in complete sentences and no respiratory distress GI Inspection: Yes normal to inspection Back/Spine/Pelvis Cervical Spine: normal cervical lordosis Thoracic/Lumbar Spine: thoracic and lumbar spine normal to inspection Skin General skin exam: no rashes or lesions noted Neuro General: patient oriented x3, gait normal, tone normal and moves all extremities Extrem General: Yes normal to inspection and Yes capillary refill normal Assessment & Plan Assessment & Plan (1) Pelvic floor tension: Code(s): M62.89 - Other specified disorders of muscle Category: Medical (2) Prostatitis: Comment: PRN followup Code(s): N41.9 - Inflammatory disease of prostate, unspecified Category: Medical Qualifiers: Prostatitis type: chronic Qualified Code(s): N41.1 - Chronic prostatitis Plan Twelve month follow-up Medications: New diazepam Crush tablet and mixed with water based jelly before inserting 10 mg PO ONCE 30 days PRN 14 tabs 0RF muscle spasm M62.89 - Other specified disorders of muscle Patient Instructions: Imaging studies, laboratory and physical exam results were discussed and reviewed in detail. No major barriers to patient understanding were identified. An opportunity to ask questions regarding the treatment plan was provided. All questions were answered. The patient expressed understanding and agreement with the above treatment plan. The patient is aware they should contact our office by phone for worsening of their current condition or the appearance of new urologic symptoms. Compliance is encouraged with any medications and followup testing that is ordered. It is a privilege to participate in the urologic care of your patient. If you have any questions or concerns regarding treatment for the above conditions, or other urologic issues, please do not hesitate to contact me. The office telephone contact is [phone]. This note is constructed using voice recognition software. While every effort has been made to ensure accuracy cook taco errors may have been included. Yours sincerely, Dr Bennie Camilo MD, [facility] - Urology Providers of Expert, Compassionate Care for the Genitourinary System Coding Level of Care Code Est Pt Level 4 (22593) Diagnoses Pelvic floor tension M62.89 Chronic prostatitis N41.1 Prostatitis type: chronic
== END 2023-10-17 09:37 | disposition home or self-care (01) ==
PROVIDERS: PCP Internal Medicine; Visit Provider Urology
DX: M62.89 Other specified disorders of muscle (principal); N41.1 Chronic prostatitis
CPT/HCPCS: 99213

== ENCOUNTER → 2023-10-17 09:04 | Outpatient (BNVA) | payer OTHER, SELFPAY | PROVIDERS: PCP Internal Medicine; Visit Provider Urology | DX: M62.89 Other specified disorders of muscle (principal); N41.1 Chronic prostatitis | CPT/HCPCS: 99212 ==